=== PATIENT | female | born 1970 | race Two or more races ===

== ENCOUNTER 2024-09-17 18:33 | Emergency (ER) | payer OTHER ==
[~2024-09-17] VITALS: Ht 157.5 cm; Wt 74.7 kg
[2024-09-17] MEDS: HYDROcodone-ACET 10/325MG TAB PO ONE (19:15)
--- NOTE | 2024-09-17 19:20 | ED.PDOC ---
Musculoskeletal HPI Comments A 53 year-old female presents to the ED with a chief complaint of left forearm/wrist pain S/P fall at work today. Patient states she was at work when she tripped over a trash can, landing on the left arm/hand. Patient reports pain since. Upon triage, bruising was noted to the left palm. Patient has no further complaints at this time and otherwise denies further associated symptoms of fever, chills, dizziness, general weakness, or body aches. Patient was hypertensive on arrival. Patient denied any head trauma. Chief Complaint: Upper Extremity Time Seen by MD: 19:10 Reviewed Notes: Nurses Notes, Medications, Allergies Home Meds Active Scripts Hydrocodone-Acetaminophen (Hydrocodone Bitartrate/AC 5-325 mg) 1 Tab Tab, 1 TAB PO Q6HP PRN, #20 TAB Prov:STANISLAW AMANDA PAC 09/17/24 Ibuprofen (Ibuprofen) 600 Mg Tab, 1 TAB PO Q6HP PRN, #30 TAB Prov:STANISLAW AMANDA PAC 09/17/24 Information Source: Patient Mode of Arrival: Ambulatory Location: Left Extremity Location: Elbow, Forearm, Wrist Timing: Minutes Prehospital treatment: None Severity: Moderate Able to Move Extremity: Yes Bear Weight: Fully Pain: Moderate Hand Dominance: Right Mechanism: FOOSH Circumstances: Work Related Onset of Symptoms: After Trauma Symptoms: Swelling, Pain DVT Risk Factors: NONE Associated signs and symptoms: Wrist pain, Forearm pain, Other (Elbow pain) Past Medical History PAST MEDICAL HISTORY: Denies Surgical History: Denies all surgeries PHARMACOGENETICIST History: No Pertinent PHARMACOGENETICIST History Family History Family History: Reviewed,noncontributory to illness, No family hx of Cancer, No family hx of DM, No family hx of Heart jennifer, No family hx of HTN, No family hx ofKidney jennifer, No family hx of Liver jennifer, No family hx of Lung jennifer, No family hx of Stroke Social History Smoker: Non-Smoker Alcohol: Denies ETOH Use Drugs: Denies Drug Use Lives In: Home Constitutional: denies: chills, diaphoresis, fatigue, fever, malaise, sweats, weakness, others EENTM: denies: blurred vision, double vision, ear bleeding, ear discharge, ear drainage, ear pain, ear ringing, eye pain, eye redness, hearing loss, mouth pain, mouth swelling, nasal discharge, nose bleeding, nose congestion, nose pain, photophobia, tearing, throat pain, throat swelling, voice changes, others Respiratory: denies: cough, hemoptysis, orthopnea, SOB at rest, shortness of breath, SOB with excertion, stridor, wheezing, others Cardiovascular: denies: chest pain, dizzy spells, diaphoresis, Dyspnea on exertion, edema, irregular heart beat, left arm pain, lightheadedness, palpitations, PND, syncope, others Gastrointestinal: denies: abdomen distended, abdominal pain, blood streaked bowels, constipated, diarrhea, dysphagia, difficulty swallowing, hematemesis, melena, nausea, poor appetite, poor fluid intake, rectal bleeding, rectal pain, vomiting, others Genitourinary: denies: abnormal vagina bleeding, burning, dyspareunia, dysuria, flank pain, frequency, hematuria, incontinence, pain, , vagina discharge, urgency, others Neurological: denies: dizziness, fainting, headache, left sided numbness, left sided weakness, numbness, paresthesia, pre-existing deficit, right sided numbness, right sided weakness, seizure, speech problems, tingling, tremors, weakness, others Musculoskeletal: reports: others (Left forearm/elbow and wrist pain); denies: back pain, gout, joint pain, joint swelling, muscle pain, muscle stiffness, neck pain Integumetry: denies: bruises, change in color, change in hair/nails, dryness, laceration, lesions, lumps, rash, wounds, others Allergic/Immunocompromised: denies: Difficulty Healing, Frequent Infections, Hives, Itching, others Hematologic/Lymphatic: denies: anemia, blood clots, easy bleeding, easy bruising, swollen glands, others Endocrine: denies: excessive hunger, excessive sweating, excessive thirst, excessive urination, flushing, intolerance to cold, intolerance to heat, unexplained weight gain, unexplained weight loss, others Psychiatric: denies: anxiety, bipolar disorder, depression, hopeless, panic disorder, schizophrenia, sleepless, suicidal, others All Other Systems: Reviewed and Negative Physical Exam General Appearance: Moderate Distress ([id number] distress due to left arm pain concerns.), Normal HEENT: Normal ENT Inspection, Pharynx Normal, TMs Normal Neck: Full Range of Motion, Non-Tender, Normal, Normal Inspection Respiratory: Chest Non-Tender, Lungs Clear, No Accessory Muscle Use, No Respiratory Distress, Normal Breath Sounds Cardiovascular: No Edema, No JVD, No Murmur, No Gallop, Normal Peripheral Pulses, Regular Rate/Rhythm Breast Exam: Deferred Gastrointestinal: No Organomegaly, Non Tender, No Pulsatile Mass, Normal Bowel Sounds, Soft Genitalia: Deferred Pelvic: Deferred Rectal: Deferred Extremities: Other (Patient has diffuse tenderness to palpation throughout the left elbow down the lateral aspect of the forearm and into the wrist. Some ecchymosis noted at the palmar aspect of the left hand. Significant reduced range of motion. No crepitus appreciated.) Neurologic: Alert, No Motor Deficits, Normal Affect, Normal Mood, No Sensory Deficits Cerebellar Function: Normal Reflexes: Normal Skin: Dry, Normal Color, Warm Lymphatic: No Adenopathy Was a procedure done? Was a procedure done?: No Differential Diagnosis EXT Differential Diagnosis: Fracture, Sprain, Contusion, Strain, Arthritis X-Ray, Labs, Meds, VS Vital Signs Date Time Temp Pulse Resp B/P (MAP) Pulse Ox O2 Delivery O2 Flow Rate FiO2 09/17/24 18:42 98.1 97 18 180/97 (124 96 98.1 [place] [address] Ph: [phone] DIAGNOSTIC IMAGING Diagnostic Imaging Report : [id number] Signed PATIENT: EVELIN OCONNELL ACCT: [id number] UNIT: [id number] : 1970 LOC: ER ROOM / BED: / AGE / SEX: 53 / F ADM STATUS: REG ER SERVICE 11 ORDERING PHYSICIAN: STANISLAW AMANDA PAC PROCEDURE(s): LFOR - L FOREARM XRAY REASON: Fall/trauma ORDER NUMBER(s): [id number], ACCESSION NUMBER(s): [id number] CLINICAL INDICATION: Fall/trauma TECHNIQUE: XY L FOREARM XRAY Comparison: None FINDINGS / IMPRESSION: Mildly displaced intra-articular fracture of radial head. Elbow joint alignment is maintained. [place] [address] Ph: [phone] DIAGNOSTIC IMAGING Diagnostic Imaging Report : [id number] Signed PATIENT: EVELIN OCONNELL ACCT: [id number] UNIT: [id number] : 1970 LOC: ER ROOM / BED: / AGE / SEX: 53 / F ADM STATUS: REG ER SERVICE 11 ORDERING PHYSICIAN: STANISLAW AMANDA PAC PROCEDURE(s): LELB3 - L ELBOW 3 VIEW XRAY REASON: Fall/trauma ORDER NUMBER(s): [id number], ACCESSION NUMBER(s): [id number] CLINICAL INDICATION: Fall/trauma TECHNIQUE: XY L ELBOW 3 VIEW XRAY Comparison: None FINDINGS / IMPRESSION: Mildly displaced articular fracture of radial head. Elbow joint alignment is maintained. [place] [address] Ph: [phone] DIAGNOSTIC IMAGING Diagnostic Imaging Report : [id number] Signed PATIENT: EVELIN OCONNELL ACCT: [id number] UNIT: [id number] : 1970 LOC: ER ROOM / BED: / AGE / SEX: 53 / F ADM STATUS: REG ER SERVICE 11 ORDERING PHYSICIAN: STANISLAW AMANDA PAC PROCEDURE(s): LWRI - L WRIST 3+ VIEW XRAY REASON: Fall/trauma ORDER NUMBER(s): [id number], ACCESSION NUMBER(s): [id number] CLINICAL INDICATION: Fall/trauma TECHNIQUE: XY L WRIST 3+ VIEW XRAY Comparison: None FINDINGS: No osseous or joint abnormality identified with no fracture or dislocation. Joint spaces are normal. Soft tissues appear unremarkable. IMPRESSION: No abnormality demonstrated. X-Ray, Labs, Meds, VS Comment All studies performed the ED were reviewed by me personally. Imaging studies of the left elbow, forearm and wrist revealed a nondisplaced radial head fracture. Patient will receive a splint and sling. Pain medication as needed. Patient should follow up with primary care provider in 3-5 days for re-evaluation and probable cast placement. Additionally, patient should follow up with the primary care provider for discussions related to proper blood pressure medication management as it appears that she has a poorly controlled hyperte nsive. Time of 1ST Reevaluation: 20:46 Reevaluation 1ST: Improved Consultation: PCP Patient Education/Counseling: Diagnosis, Treatment Family Education/Counseling: Diagnosis, Treatment, No Family Present Medical Screening: No EMC Exist At This Time Sepsis Recent Procedure: No On Antibiotic Therapy: No Respiratory Rate >20: No Heart Rate >90: No Temp<36 C (96.8 F) or >38.3 C: No SBP <90 or MAP <65 mmHG: No New Acute Mental Status Change: No Is the patient on CPAP, BIPAP,: No IV fluid given: No Departure 1 Departure Time of Disposition: 20:46 Impression: Primary Impression: Nondisplaced fracture of head of left radius Additional Impression: Hypertensive urgency Disposition: 01 HOME / SELF CARE / HOMELESS Condition: Stable Additional Instructions: Advised patient utilize pain medication as needed. Patient should follow up with worker's comp or primary care provider in 3-5 days for re-evaluation and cast placement. If the patient has any problems following up with a known provider, patient should contact our facility at [phone] and asked for the orthopedic department run by Dr. Post for assistance with cast placement. e-Prescriptions Clonidine Hydrochloride (Clonidine Hcl) 0.2 Mg Tab 1 TAB PO BIDP PRN, #10 TAB 0 Refills To be used if systolic blood pressures above 160 or diastolic pressures above 90. Prov: STANISLAW AMANDA PAC 09/17/24 Hydrocodone-Acetaminophen (Hydrocodone Bitartrate/AC 5-325 mg) 1 Tab Tab 1 TAB PO Q6HP PRN, #20 TAB Prov: STANISLAW AMANDA PAC 09/17/24 Ibuprofen (Ibuprofen) 600 Mg Tab 1 TAB PO Q6HP PRN, #30 TAB Prov: STANISLAW AMANDA PAC 09/17/24 Discharged With: Self, Friend Critical Care Note Critical Care Time?: No Stability Stability form required: No Heart Score Heart Score: Heart Score Response (Comments) Value History N/A 0 EKG N/A 0 Age N/A 0 Risk Factors N/A 0 Troponin N/A 0 Total 0 I personally scribed for STANISLAW AMANDA PAC ([email or web address]) on 09/17/24 at 19:20. Electronically submitted by Veda Montague (PRESLEY). I personally scribed for TREASURE,STANISLAW B PAC ([email or web address]) on 09/17/24 at 19:22. Electronically submitted by Veda Montague (PRESLEY). I personally scribed for TREASURE,STANISLAW B PAC ([email or web address]) on 09/17/24 at 19:27. Electr onically submitted by Veda Montague (PRESLEY). I personally scribed for TREASURE,STANISLAW B PAC ([email or web address]) on 09/17/24 at 20:37. Geri ctronically submitted by Veda Montague ([place]). I personally scribed for TREASURE,STANISLAW B PAC ([email or web address]) on 09/17/24 at 20:37. Electronically submitted by Veda Montague (PRESLEY). I personally scribed for TREASURE,STANISLAW B PAC ([email or web address]) on 09/17/24 at 20:37. Electronically submitted by Veda Montague (PRESLEY). TREASURE,STANISLAW B PAC Sep 17, 2024 19:20
--- NOTE | 2024-09-17 20:19 | DVH ---
CLINICAL INDICATION: Fall/trauma TECHNIQUE: XY L WRIST 3+ VIEW XRAY Comparison: None FINDINGS: No osseous or joint abnormality identified with no fracture or dislocation. Joint spaces are normal. Soft tissues appear unremarkable. IMPRESSION: No abnormality demonstrated.
--- NOTE | 2024-09-17 20:22 | DVH ---
CLINICAL INDICATION: Fall/trauma TECHNIQUE: XY L ELBOW 3 VIEW XRAY Comparison: None FINDINGS / IMPRESSION: Mildly displaced articular fracture of radial head. Elbow joint alignment is maintained.
--- NOTE | 2024-09-17 20:28 | DVH ---
CLINICAL INDICATION: Fall/trauma TECHNIQUE: XY L FOREARM XRAY Comparison: None FINDINGS / IMPRESSION: Mildly displaced intra-articular fracture of radial head. Elbow joint alignment is maintained.
[2024-09-17] MEDS ORDERED: IBUP-1454 PO (20:49)
[2024-09-17] MEDS ORDERED: HYDR-4902 PO (20:49)
[2024-09-17] MEDS ORDERED: CLON0.2T PO (21:01)
[2024-09-17 21:43] VITALS: BP 147/87; PULSE 65; RESP 17; TEMP 98.2; O2SAT 98
== END 2024-09-17 21:47 | disposition home or self-care (01) ==
LOC: ER 18:33
DX: S52.125A Nondisplaced fracture of head of left radius, initial encounter for closed fracture (principal); I16.0 Hypertensive urgency; Z79.899 Other long term (current) drug therapy; W22.8XXA Striking against or struck by other objects, initial encounter; Y93.89 Activity, other specified; Y92.89 Other specified places as the place of occurrence of the external cause; Y99.8 Other external cause status
CPT/HCPCS: 29105; 29125; 73080; 73090; 73110

== ENCOUNTER 2024-10-24 21:51 | Inpatient (IN) | payer OTHER ==
[~2024-10-24] VITALS: Ht 157.5 cm; Wt 74.4 kg
[~2024-10-24 21:51] MED LIST: CLON0.2T PO; HYDR-4902 PO; IBUP-1454 PO
[2024-10-24 23:19] LABS: Hematocrit 42.2 % (36.0-46.0); Hemoglobin 14.2 g/dL (12.2-16.2); Mean Corpuscular Hemoglobin 30.1 pg (28.0-32.0); Mean Corpuscular Volume 89.1 fL (80.0-100.0); Nucleated Red Blood Cells % 0.1 %
[2024-10-24 23:34] LABS: INR 0.94 (0.9-1.15); Partial Thromboplastin Time 26.5 SEC (24.5-34.5); Prothrombin Time 10.0 sec (9.3-11.8)
[2024-10-24 23:35] LABS: Alanine Aminotransferase 20 U/L (7-40); Alkaline Phosphatase 99 U/L (46-116); Anion Gap 8 (5-15); BUN/Creatinine Ratio 11.3 (10.0-20.0); Calcium 9.6 mg/dL (8.7-10.4); Carbon Dioxide 27 mmol/L (20-31); Chloride 105 mmol/L (98-107); Glucose 98 mg/dL (74-106); Potassium 3.9 mmol/L (3.5-5.1); Sodium 140 mmol/L (136-145); Total Protein 7.8 g/dL (5.7-8.2)
[2024-10-24 23:36] LABS: Bilirubin, Total 0.5 mg/dL (0.2-1.0)
--- NOTE | 2024-10-24 23:40 | ECG ---
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
[2024-10-24 23:41] LABS: Albumin 4.8 g/dL (3.2-4.8); Blood Urea Nitrogen 8 mg/dL (9-23)
--- NOTE | 2024-10-25 00:31 | ED.PDOC ---
History of Present Illness HPI Comments PT CAME TO THE ER WITH CC OF CHECKING IN FOR SURGURY ON HER LEFT ELBOW TOMORROW MORNING, PT IS A&OX4 RR EVEN AND REGULAR NO DISTRESS NOTED AT THIS TIME. PT DENIES N/V/D CP SOB. PT STATES SHE IS SCHEDULED FOR LEFT ELBOW SURGERY WITH DR. ARTHUR ORTHO SURGEON AND WAS TOLD TO COME IN TONIGHT AND NOT ON FRIDAY MORNING DUE TO THE HOLIDAY. Chief Complaint: Medical Clearance Time Seen by MD: 22:04 Reviewed Notes: Nurses Notes, Medications, Allergies Allergies: Coded Allergies: NO KNOWN ALLERGIES (Unverified , 10/24/24) Home Meds Active Scripts Hydrocodone-Acetaminophen (Hydrocodone Bitartrate/AC 5-325 mg) 1 Tab Tab, 1 TAB PO Q6HP PRN, #20 TAB Prov:STANISLAW AMANDA PAC 09/18/24 Clonidine Hydrochloride (Clonidine Hcl) 0.2 Mg Tab, 1 TAB PO BIDP PRN, #10 TAB 0 Refills To be used if systolic blood pressures above 160 or diastolic pressures above 90. 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 RIP MACHINE OPERATOR History Family History Family History: Reviewed,noncontributory to illness, No family hx of Cancer, No family hx of DM, No family hx of Heart jennifer, No family hx of HTN, No family hx ofKidney jennifer, No family hx of Liver jennifer, No family hx of Lung jennifer, No family hx of Stroke Social History Smoker: Non-Smoker Alcohol: Denies ETOH Use Drugs: Denies Drug Use Lives In: Home All Other Systems: Reviewed and Negative (SEE HPI) Physical Exam General Appearance: No Apparent Distress, Normal HEENT: Normal ENT Inspection, Pharynx Normal, TMs Normal Neck: Full Range of Motion, Non-Tender Respiratory: Lungs Clear, No Respiratory Distress, Normal Breath Sounds Cardiovascular: No Edema, No JVD, No Murmur, No Gallop, Normal Peripheral Pulses, Regular Rate/Rhythm Breast Exam: Deferred Gastrointestinal: No Organomegaly, Non Tender, No Pulsatile Mass, Normal Bowel Sounds, Soft Genitalia: Deferred Pelvic: Deferred Rectal: Deferred Extremities: No calf tenderness, Normal capillary refill, Normal range of motion, No pedal edema Musculoskeletal : Location: Left Extremity Location: Elbow (IN SLING CSM INTACT) Apperance: Normal Neurologic: Alert, No Motor Deficits, Normal Affect, Normal Mood, No Sensory Deficits Cerebellar Function: Normal Reflexes: Normal Skin: Dry, Normal Color, Warm Lymphatic: No Adenopathy Was a procedure done? Was a procedure done?: No Differential Dx Considerations may include: ABNORMAL LABS X-Ray, Labs, Meds, VS Vital Signs Date Time Temp Pulse Resp B/P (MAP) Pulse Ox O2 Delivery O2 Flow Rate FiO2 10/25/24 00:25 67 17 97 Room Air 10/24/24 23:55 98.5 67 17 144/92 (109) 97 98.5 10/24/24 23:37 62 10/24/24 21:53 98.5 80 18 133/86 97 98.5 Lab Test 10/24/24 23:10 Range/Units White Blood Count 8.2 4.4-10.8 10^3/uL Red Blood Count 4.73 4.0-5.20 10^6/uL Hemoglobin 14.2 12.2-16.2 g/dL Hematocrit 42.2 36.0-46.0 % Mean Corpuscular Volume 89.1 80.0-100.0 fL Mean Corpuscular Hemoglobin 30.1 28.0-32.0 pg Mean Corpuscular Hemoglobin Concent 33.8 32.0-36.0 g/dL Red Cell Distribution Width 13.3 11.8-14.3 % Platelet Count 296 140-450 10^3/uL Mean Platelet Volume 8.8 6.9-10.8 fL Neutrophils (%) (Auto) 41.2 37.0-80.0 % Lymphocytes (%) (Auto) 50.8 H 10.0-50.0 % Monocytes (%) (Auto) 6.3 0.0-12.0 % Eosinophils (%) (Auto) 1.1 0.0-7.0 % Basophils (%) (Auto) 0.6 0.0-2.0 % Neutrophils # (Auto) 3.4 1.6-8.6 10 ^3/uL Lymphocytes # (Auto) 4.2 0.4-5.4 10 ^3/uL Monocytes # (Auto) 0.5 0-1.3 10 ^3/uL Eosinophils # (Auto) 0.1 0-0.8 10 ^3/uL Basophils # (Auto) 0 0-0.2 10 ^3/uL Nucleated Red Blood Cells 0.1 % Prothrombin Time 10.0 9.3-11.8 sec Prothrombin Time INR 0.94 0.9-1.15 Activated Partial Thromboplast Time 26.5 24.5-34.5 SEC Sodium Level 140 136-145 mmol/L Potassium Level 3.9 3.5-5.1 mmol/L Chloride Level 105 98-107 mmol/L Carbon Dioxide Level 27 20-31 mmol/L Anion Gap 8 5-15 Blood Urea Nitrogen 8 L 9-23 mg/dL Creatinine 0.71 0.550-1.02 mg/dL Glomerular Filtration Rate Calc 100 >90 mL/min BUN/Creatinine Ratio 11.3 10.0-20.0 Serum Glucose 98 74-106 mg/dL Calcium Level 9.6 8.7-10.4 mg/dL Total Bilirubin 0.5 0.2-1.0 mg/dL Aspartate Amino Transferase (AST) 17 13-40 U/L Alanine Aminotransferase (ALT) 20 7-40 U/L Alkaline Phosphatase 99 46-116 U/L Total Protein 7.8 5.7-8.2 g/dL Albumin 4.8 3.2-4.8 g/dL X-Ray, Labs, Meds, VS Comment IMAGING: CHEST X0-RAY IMPRESSION: 1. No evidence of acute disease. LABS: CBC, CMP, COAGS ALL WITHIN NORMAL LIMITS EKG SHOWS NO ECTOPY OR ST ELEVATION NORMAL SINUS. PLAN: PATIENT PLACED FOR HOSPITALIST FOR ADMISSION, FOR SURGERY LEFT RADIAL HEAD FX REPAIR WITH ORTHO SURGEON DR. STEFFANY MAURO. Time of 1ST Reevaluation: 22:30 Reevaluation 1ST: Unchanged Time of 2ND Reevaluation: 00:30 Reevaluation 2ND: Improved Patient Education/Counseling: Diagnosis, Treatment, Prognosis, Need For Follow Up Family Education/Counseling: No Family Present SEPSIS Sepsis Screen Date sepsis recognized/suspect: Oct 24, 2024 Time Sepsis recognized/suspect: 2158 Recent Procedure: No On Antibiotic Therapy: No Respiratory Rate >20: No Heart Rate >90: No Temp<36 C (96.8 F) or >38.3 C: No SBP <90 or MAP <65 mmHG: No New Acute Mental Status Change: No Is the patient on CPAP, BIPAP,: No Physician Orders Electrocardigram (10/24/24 23:59) Chest Two Views Routine (10/25/24 00:31) Urinalysis (10/25/24 00:32) Heplock Iv (10/25/24 ) Heplock Iv (10/25/24 ) Vital Signs Date Time Temp Pulse Resp B/P (MAP) Pulse Ox O2 Delivery O2 Flow Rate FiO2 10/25/24 00:25 67 17 97 Room Air 10/24/24 23:55 98.5 67 17 144/92 (109) 97 98.5 10/24/24 23:37 62 10/24/24 21:53 98.5 80 18 133/86 97 98.5 Laboratory Tests Test 10/24/24 23:10 White Blood Count 8.2 10^3/uL (4.4-10.8) Departure 1 Departure Time of Disposition: 00:31 Impression: Primary Impression: Nondisplaced fracture of head of left radius Qualified Codes: S52.125A - Nondisplaced fracture of head of left radius, i nitial encounter for closed fracture Disposition: ADMITTED INPATIENT Condition: Stable Discharged With: Self Critical Care Note Critical Care Time?: No Stability Stability form required: JAMES Lemus Oct 25, 2024 00:31
--- NOTE | 2024-10-25 00:54 | DVH ---
CHEST RADIOGRAPH Indication: SURGERY CLEARANCE Technique: Frontal and lateral view of the chest was obtained Comparison: None FINDINGS: Lines and Tubes: None Lungs: Clear Pleura: No effusion. No pneumothorax. Cardiomediastinal contours: Unremarkable Bones: Unremarkable IMPRESSION: 1. No evidence of acute disease.
[2024-10-25] MEDS ORDERED: ACETAMINOPHEN 325 MG TAB PO PRN (04:00)
[2024-10-25] MEDS ORDERED: DOCUSATE SOD 100 MG CAP PO PRN (04:00)
[2024-10-25] MEDS ORDERED: ONDANSETRON HCL 4 MG/2 ML VIAL IV PRN ×2 (04:00→12:45)
[2024-10-25 06:39] LABS: Hematocrit 41.4 % (36.0-46.0); Hemoglobin 14.3 g/dL (12.2-16.2); Mean Corpuscular Hemoglobin 30.6 pg (28.0-32.0); Mean Corpuscular Volume 88.4 fL (80.0-100.0); Nucleated Red Blood Cells % 0.2 %
[2024-10-25 06:53] LABS: INR 0.97 (0.9-1.15); Partial Thromboplastin Time 28.7 SEC (24.5-34.5); Prothrombin Time 10.3 sec (9.3-11.8)
[2024-10-25 06:55] LABS: Alanine Aminotransferase 19 U/L (7-40); Alkaline Phosphatase 98 U/L (46-116); Anion Gap 10 (5-15); BUN/Creatinine Ratio 10.8 (10.0-20.0); Calcium 9.6 mg/dL (8.7-10.4); Carbon Dioxide 27 mmol/L (20-31); Chloride 104 mmol/L (98-107); Glucose 93 mg/dL (74-106); Potassium 4.1 mmol/L (3.5-5.1); Sodium 141 mmol/L (136-145); Total Protein 7.7 g/dL (5.7-8.2)
[2024-10-25 06:56] LABS: Bilirubin, Total 0.6 mg/dL (0.2-1.0)
[2024-10-25 06:58] LABS: Albumin 4.9 g/dL (3.2-4.8); Blood Urea Nitrogen 8 mg/dL (9-23)
[2024-10-25] MEDS ORDERED: LACTATED RINGER'S 1,000 ML IV SCH (07:15)
--- NOTE | 2024-10-25 08:50 | DVHHPRES ---
History of Present Illness Resident Creating Document: STEPHANIE MCCRAY RESIDENT History of Present Illness 54-year-old female with past history of hypothyroidism presented to the hospital for admission and pre-surgical evaluation, surgery posted on Friday by Dr. Weiner. The patient states she tripped and fell down in an alley in August fracturing her forearm. Elbow x-ray showed nondisplaced radial head fracture. Review of Systems Review of Systems General: patient denies fever, fatigue, weaknes, sweating, any recent changes in appetite and weight HEENT: No headaches, visiual changes, hearing loss, tinnitus, nasal congestion and discharge, and sore throat. Cardiovascular: Denies chest pain, palpitations, dyspnea on exertion, orthopnea, or claudication. Respiratory: No cough, and wheezing. Gastrointestinal: Denies nausea, vomiting, dysphagia, odynophagia, heartburn, abdominal pain, flatulence, bloating, diarrhea, constipation, change in stool, or blood in stool. Genitourinary: No dysuria, hematuria, discharge, frequency, urgency, nocturia, incontinence, and urinary retention. Endocrine: No heat or cold intolerance, polydipsia, polyuria, and polyphagia. Neurological: No dizziness, extremity weakness and numbness, tremors, gait disturbance, seizures, and memory impairment. Psychiatric: Denies depression, anxiety,or insomnia. Musculoskeletal: Complains of pain in the left elbow Skin: No rashes, itching, skin lesion, changes in hair, nail, skin texture and breast. Hematologic/Lymphatic: Denies easy bruising, bleeding tendencies, or lymph node enlargement. Allergies: Coded Allergies: NO KNOWN ALLERGIES (Unverified , 10/24/24) Medications Current Medications Medications Dose Ordered Sig/Jose Daniel Route Start Time Stop Time Status Last Admin Dose Admin Acetaminophen 325 mg Q4HP PRN PO 10/25/24 04:00 Acetaminophen/ Hydrocodone Bitart 1 tab Q4HP PRN PO 10/25/24 04:00 Ondansetron HCl 4 mg Q4HP PRN IV 10/25/24 04:00 Docusate Sodium 100 mg BIDPRN PRN PO 10/25/24 04:00 Levothyroxine Sodium 100 mcg QAM@0600 PO 10/26/24 06:00 Lactated Ringer's 1,000 ml @ 50 mls/hr Q20H IV 10/25/24 07:15 Enoxaparin Sodium 40 mg DAILY SC 10/25/24 10:00 Exam Vital Signs Vital Signs Date Time Temp Pulse Resp B/P (MAP) Pulse Ox O2 Delivery O2 Flow Rate FiO2 10/25/24 06:31 Room Air* 0 21 10/25/24 00:25 67 17 97 10/24/24 23:55 98.5 144/92 (109) 98.5 Exam General Appearance: Alert, Oriented X3, Cooperative, No acute distress HEENT: Atraumatic, PERRLA, EOMI, Mucous membrane moist/pink Respiratory: Clear to auscultation, Normal air movement Cardiovascular: Regular rate, Normal S1, Normal S2, No murmurs, no chest wall tenderness Abdominal: Normal bowel sounds, Soft, No tenderness, No hepatospenomegaly, No masses Extremities: Left hand immobilized in a sling Skin: No rashes, No breakdown, No significant lesion Neuro: Normal gait, Normal speech, Strength at 5/5 X4 ext, Normal tone, Sensa tion intact, Cranial nerves 3-12 NL, Reflexes 2+ Psych/Mental Status: Mental status NL, Mood NL Labs/Xrays Labs Test 10/25/24 05:55 10/25/24 05:50 Range/Units White Blood Count 8.2 4.4-10.8 10^3/uL Red Blood Count 4.68 4.0-5.20 10^6/uL Hemoglobin 14.3 12.2-16.2 g/dL Hematocrit 41.4 36.0-46.0 % Mean Corpuscular Volume 88.4 80.0-100.0 fL Mean Corpuscular Hemoglobin 30.6 28.0-32.0 pg Mean Corpuscular Hemoglobin Concent 34.6 32.0-36.0 g/dL Red Cell Distribution Width 13.2 11.8-14.3 % Platelet Count 298 140-450 10^3/uL Mean Platelet Volume 9.2 6.9-10.8 fL Neutrophils (%) (Auto) 48.0 37.0-80.0 % Lymphocytes (%) (Auto) 44.4 10.0-50.0 % Monocytes (%) (Auto) 6.3 0.0-12.0 % Eosinophils (%) (Auto) 0.6 0.0-7.0 % Basophils (%) (Auto) 0.7 0.0-2.0 % Neutrophils # (Auto) 3.9 1.6-8.6 10 ^3/uL Lymphocytes # (Auto) 3.6 0.4-5.4 10 ^3/uL Monocytes # (Auto) 0.5 0-1.3 10 ^3/uL Eosinophils # (Auto) 0.1 0-0.8 10 ^3/uL Basophils # (Auto) 0.1 0-0.2 10 ^3/uL Nucleated Red Blood Cells 0.2 % Prothrombin Time 10.3 9.3-11.8 sec Prothrombin Time INR 0.97 0.9-1.15 Activated Partial Thromboplast Time 28.7 24.5-34.5 SEC Sodium Level 141 136-145 mmol/L Potassium Level 4.1 3.5-5.1 mmol/L Chloride Level 104 98-107 mmol/L Carbon Dioxide Level 27 20-31 mmol/L Anion Gap 10 5-15 Blood Urea Nitrogen 8 L 9-23 mg/dL Creatinine 0.74 0.550-1.02 mg/dL Glomerular Filtration Rate Calc 95 >90 mL/min BUN/Creatinine Ratio 10.8 10.0-20.0 Serum Glucose 93 74-106 mg/dL Calcium Level 9.6 8.7-10.4 mg/dL Total Bilirubin 0.6 0.2-1.0 mg/dL Aspartate Amino Transferase (AST) 16 13-40 U/L Alanine Aminotransferase (ALT) 19 7-40 U/L Alkaline Phosphatase 98 46-116 U/L Total Protein 7.7 5.7-8.2 g/dL Albumin 4.9 H 3.2-4.8 g/dL SEPSIS Sepsis Screen Date sepsis recognized/suspect: Oct 24, 2024 Time Sepsis recognized/suspect: 2158 Recent Procedure: No On Antibiotic Therapy: No Respiratory Rate >20: No Heart Rate >90: No Temp<36 C (96.8 F) or >38.3 C: No SBP <90 or MAP <65 mmHG: No New Acute Mental Status Change: No Is the patient on CPAP, BIPAP,: No Physician Orders Heplock Iv (10/25/24 ) Heplock Iv (10/25/24 ) Admit (10/25/24 03:56) Allergies (10/25/24 03:56) Code Status (10/25/24 03:56) Acetaminophen Tablet (Tylenol Tablet) (10/25/24 04:00) Hydrocodone-Acet 5/325mg Tab ([place]upiter 5/32 (10/25/24 04:00) Ondansetron Hcl (Zofran) (10/25/24 04:00) Docusate Sodium Capsule (Colace Capsule) (10/25/24 04:00) Npo (Nothing By Mouth) Diet (10/25/24 Breakfast) Condition: Fair (10/25/24 03:56) * Orthopedic Consult (10/25/24 04:11) Thyroid Stimulating Hormone (10/25/24 07:05) Levothyroxine Tablet (Synthroid Tablet) (10/26/24 06:00) Lactated Ringer's (10/25/24 07:15) Enoxaparin Sodium (Lovenox) (10/25/24 10:00) Drug Screen (10/25/24 07:09) Blood Alcohol (10/25/24 07:09) Vitamin D, 25-Hydroxy (10/25/24 07:09) Vital Signs Date Time Temp Pulse Resp B/P (MAP) Pulse Ox O2 Delivery O2 Flow Rate FiO2 10/25/24 06:31 Room Air* 0 21 Laboratory Tests Test 10/24/24 23:10 10/25/24 05:50 White Blood Count 8.2 10^3/uL (4.4-10.8) 8.2 10^3/uL (4.4-10.8) Assessment/Plan Assessment/Plan #Nondisplaced radial head fracture, left side-posted for surgery on Friday by Dr. Duffy #History of hypothyroidism-TSH, levothyroxine #Pre up evaluation labs-EKG, chest x-ray, CBC, CMP, PT, APTT #Orthopedics consulted Plan discussed with: Patient My Orders Orders - STEPHANIE MCCRAY RESIDENT Procedure Category Date Status Time Admit ADMIT 10/25/24 Transmitted 03:56 Allergies TONY 10/25/24 In Process 03:56 Code Status CODE 10/25/24 Transmitted 03:56 Acetaminophen Tablet PHA 10/25/24 In Process (Tylenol Tablet) 04:00 Hydrocodone-Acet PHA 10/25/24 In Process 5/325mg Tab ([place]upiter 04:00 Ondansetron Hcl PHA 10/25/24 In Process (Zofran) 04:00 Docusate Sodium PHA 10/25/24 In Process Capsule (Colace 04:00 Npo (Nothing By DIET 10/25/24 Transmitted Mouth) Diet Breakfast Condition: Fair TONY 10/25/24 In Process 03:56 * Orthopedic Consult CONS 10/25/24 Transmitted 04:11 Date of Service: Oct 25, 2024 Billing Provider: NEHA JONES MD Common Visit Codes: [id number] INP/OBS CARE (HIGH) Secondary Visit Codes: [id number] CARE PLAN 30 MINUTES STEPHANIE MCCRAY RESIDENT Oct 25, 2024 08:50
[2024-10-25] MEDS: ENOXAPARIN SOD 40 MG/0.4 ML SYRINGE SC SCH (10:00)
[2024-10-25] MEDS ORDERED: ceFAZolin 1GM/50ML 50 ML IV ONE ×2 (10:48→10:50)
[2024-10-25] MEDS ORDERED: fentaNYL CITRATE 100 MCG/2 ML VL ONE ×2 (11:54)
[2024-10-25] MEDS ORDERED: MIDAZOLAM HCL 2MG/2ML 2ml VIAL (1mg/ml) ONE (11:54)
--- NOTE | 2024-10-25 11:56 | DVHHP2 ---
History Allergies: Coded Allergies: NO KNOWN ALLERGIES (Unverified , 10/24/24) Chief Complaint: 54F, left elbow pain s/p mechanical fall on 09/17/24. 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 and therefore requested ORIF no hitting head, No LOC with fall Present Illness(Onset/Duration Left radial head fracture, 50%, displaced Past Surgical History none Medications thyroxin Physical Exam Skin intact EENT NCAT Chest and Lungs CTA B Heart RRR neg MRG Abdomen NBS ND NT Extremities Left elbow, ROM and stability not assessed due to fracture skin intact, NVI Vital Signs Vital Signs Date Time Temp Pulse Resp B/P (MAP) Pulse Ox O2 Delivery O2 Flow Rate FiO2 10/25/24 06:31 Room Air* 0 21 10/25/24 00:25 67 17 97 10/24/24 23:55 98.5 144/92 (109) 98.5 Impressions/Description Left radial head fracture, intra articular, 50 % of head surface, depressed 2-3 mm Plan Open reduction internal fixation of left radial head fracture GABE ARTHUR MD Oct 25, 2024 11:56
[2024-10-25] MEDS ORDERED: BUPIVACAINE 0.5% P/F INJ 10 ML VIAL ONE (12:21)
[2024-10-25] MEDS ORDERED: HYDROmorphone HCL 2 MG/ML VL/or syr IV PRN ×2 (12:45)
[2024-10-25 13:04] VITALS: PULSE 100; RESP 12
--- NOTE | 2024-10-25 13:23 | DVHOP2 ---
Operative Report - 2 Report Details Date: 10/25/24 Preop Diagnosis: Left radial head fracture, displaced, 50 % of radial head Postop Diagnosis: same Surgeon: Gabe Arthur MD Product Communications Manager: none Anesthesiologist: Dr Jimenez Anesthesia: General Drains: none Implant: two gamaliel screws Consent: The patient was informed of the risks and benefits of the procedure. These include but are not limited to complications of anesthesia, postoperative infection, incomplete relief of symptoms, recurrence of symptoms, damage to blo od vessels, nerves and tendons, deep venous thrombosis, pulmonary embolism and possible need for repeat surgery in the future. 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 Name of Procedure Performed ORIF left elbow radial head fracture Procedure Details Procedure Details: Patient brought in the operating room given general anesthesia supine position without complication nonsterile tourniquet on left proximal arm left arm placed on armboard radiolucent sterile prep and drape left upper extremity time-out performed confirmation of site correct site open reduction internal fixation left radial head fracture correct procedure after review of the operative consent history and physical my initials and left arm exsanguination with the Esmarch tourniquet elevated to 250 mm mm of mercury total tourniquet time of 30 minutes longitudinal incision made over lateral aspect of radial capitate joint sharp dissection through skin down the subcutaneous tissue blunt dissection the deep fascia the fascia divided blunt dissection down to capsule capsule and divided including annular ligament exposing radial head and neck there seemed to be a 50% articular surface depression fracture lateral aspect or anterior lateral aspect which was then pushed back into place using osteotome and then held in place using guidewires for Gamaliel screws into her screws placed 118 mm 120 mm the far end of the hardware screws could be directly visualized by rotating the radius to see the of the screws were not protruding beyond the articular cartilage surface and similarly on the fracture site of the screws were seen to not be proud and there was no clicking or rubbing pronation and supination passively irrigation was then performed excellent hemostasis noted after tourniquet let down closure of annular ligament repair of annular ligament and deep fat the deep capsule with simple interrupted 0 Vicryl suture then repair of fascia over common extensors with 0 Vicryl suture simple inverted interrupted and then subcutaneous 2-0 Vicryl and silvia for skin fluffs ABD long-arm posterior splint in neutral pronation supination follow up in orthopedic office two weeks Specimen: none Condition Stable Disposition Still a Patient GABE ARTHUR MD Oct 25, 2024 13:23
--- NOTE | 2024-10-25 13:24 | DVHPNRES ---
Progress Note Date Seen: Oct 25, 2024 Resident Creating Document: MICHAEL HOOVER RESIDENT Medical Necessity Reason Pt with a Central, PICC or Fol: No Subjective Review of Systems This is a 54-year-old female who came to the hospital for an elective planned surgery on her left elbow this morning. The patient tripped and fell on her elbow on September 17, 2024 had a fracture of the left radial head with 50% displacement of the radial head which was splinted and asked to follow outpatient. On her last visit to orthopedics, was given the option of observation versus ORIF. 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 She has mild pain in her left elbow. The patient is stable clinically with stable vitals and was labs within range, other than the TSH which is 0.42. She is here for medical clearance for her surgery scheduled for today. Past medical history: Hypothyroidism Past surgical history: Denies Social & Personal history: Lives at home with family Smoking: Denies Alcohol: Denies Drugs: Denies Allergies: No known allergies Patient seen and examined at bedside. Patient is alert and oriented to time, place person and responding to all questions. She has pain in her left elbow. Eyes: No Pain, No Vision change, No Conjunctivae inflammation, No Eyelid inflammation, No Redness ENT: No Ear pain, No Ear discharge, No Nose pain, No Nose discharge, No Nose congestion, No Mouth pain, No Mouth swelling, No Throat pain, No Throat swelling Cardiovascular: No Chest Pain, No Palpitations, No Orthopnea, No Paroxysmal No Dyspnea, No Edema, No Lt Headedness Respiratory: No Cough, No Dry, No Shortness of breath, No SOB with exertion, No Wheezing, No Hemoptysis, No Pleuritic Pain, No Sputum Gastrointestinal: No Nausea, No Vomiting, No Abdominal Pain, No Diarrhea, No Constipation, No Melena, No Hematochezia Genitourinary: No Dysuria, No Frequency, No Incontinence, No Hematuria, No Retention Patient reports: Feels better Objective vital signs Vital Sign Date Time Temp Pulse Resp B/P (MAP) Pulse Ox O2 Delivery O2 Flow Rate FiO2 10/25/24 06:31 Room Air* 0 21 10/25/24 00:25 67 17 97 10/24/24 23:55 98.5 144/92 (109) 98.5 medications Current Medications Medications Dose Ordered Sig/Jose Daniel Route Start Time Stop Time Status Last Admin Dose Admin Acetaminophen 325 mg Q4HP PRN PO 10/25/24 04:00 Acetaminophen/ Hydrocodone Bitart 1 tab Q4HP PRN PO 10/25/24 04:00 Ondansetron HCl 4 mg Q4HP PRN IV 10/25/24 04:00 Docusate Sodium 100 mg BIDPRN PRN PO 10/25/24 04:00 Levothyroxine Sodium 100 mcg QAM@0600 PO 10/26/24 06:00 Lactated Ringer's 1,000 ml @ 50 mls/hr Q20H IV 10/25/24 07:15 Enoxaparin Sodium 40 mg DAILY SC 10/25/24 10:00 Ondansetron HCl 4 mg ONCE PRN IV 10/25/24 12:45 10/25/24 12:46 UNV Hydromorphone HCl 0.5 mg Q10M PRN IV 10/25/24 12:45 10/25/24 13:26 UNV Hydromorphone HCl 0.25 mg Q10M PRN IV 10/25/24 12:45 10/25/24 13:16 UNV Examination General Appearance: Cooperative. Well developed. Well nourished. NAD. There is tenderness around the left elbow joint with decreased range of motion. Head Exam: Normal inspection Neck Exam: Normal inspection. Non-tender. Normal alignment Pulmonary/Respiratory: Chest non-tender. Clear bilateral breath sounds, no crackles, no wheezing. Cardiovascular/Chest: Regular rate and rhythm. No murmurs. No JVD. Peripheral Pulses: 2+ Radial (R). 2+ Radial (L). 2+ Pedal (R). 2+ Pedal (L) Abdominal Exam: Normal bowel sounds. Soft. normal abdomen, no visible veins, Nontender. No hepatospenomegaly. No masses Ankle Exam: Negative ankle edema Lower extremities: Negative lower extremity edema Neuro/Mental Status: A&O x4. Coherent. Thoughts/Psych: Normal thought pattern. Appropriate mood and affect. Good judgement and insight Skin Exam: Normal inspection. Normal color. Warm. Dry laboratory and microbiology Laboratory Tests 10/25/24 05:50 Test 10/25/24 05:50 Range/Units Serum Glucose 93 74-106 mg/dL Labs and/or images reviewed: Labs reviewed by me, Image(s) reviewed by me Problem List/Assessment/Plan Problem List/Assessment/Plan Encounter for elective surgery Displaced fracture of the left radial head status post mechanical fall -elbow x-ray showed nondisplaced radial head fracture with moderate joint effusion -wrist x-ray no abnormalities -left forearm x-ray mildly displaced intra-articular fracture of radial head -orthopedic surgeon evaluated the patient-ORIF done on 10/25/2024 -symptomatic management with pain Hypothyroidism -on levothyroxine 100 mcg Vitamin-D deficiency -Repleting -outpatient monitoring PUD prophylaxis: Protonix DVT prophylaxis: Lovenox Goals of care: Full code, discussed for >16 minutes Plan discussed with patient Plan discussed with Dr Park Plan discussed with: Patient Date of Service: Oct 25, 2024 Billing Provider: TIO RICKETTS MD Common Visit Codes: [id number] INP/OBS CARE(HIGH) MICHAEL HOOVER RESIDENT Oct 25, 2024 13:24 TIO RICKETTS MD Oct 31, 2024 23:40
[2024-10-25] MEDS ORDERED: NITROGLYCERIN 0.4 MG SL TAB SL PRN (13:30)
[2024-10-25 14:00] VITALS: BP 156/78; PULSE 67; RESP 18; TEMP 97.8; O2SAT 96
[2024-10-25 14:44] VITALS: BP 156/78; PULSE 67; RESP 18; TEMP 97.8; O2SAT 96
[2024-10-25] MEDS: ERGOCALCIFEROL 50,000 UNIT(1.25MG) CAP PO SCH (14:54)
[2024-10-25] MEDS: ceFAZolin 1GM/50ML 50 ML IV SCH (14:55)
[2024-10-25] MEDS: D5W/SOD CHL 0.45%/KCL 20MEQ 1,000 ML IV SCH (14:58)
[2024-10-25] MEDS: HYDROcodone-ACET 5/325MG TAB PO PRN (15:15)
--- NOTE | 2024-10-25 16:00 | DVH ---
Indication: LT ELBOW Technique: XY L ELBOW 2 VIEW XRAYXY Comparison: None FINDINGS/IMPRESSION: Intraoperative radiographs of the left elbow for fixation pin placement within the radial head fractu re.
--- NOTE | 2024-10-25 16:01 | DVH ---
C-ARM FLUOROSCOPY: PROCEDURE: C-arm time for surgery on left elbow FLUOROSCOPY TIME: 12.5 seconds DAP: 0.39 mGy mgy FINDINGS: Spot intraoperative C arm radiographs demonstrating surgery on left elbow. IMPRESSION: 1. Please refer to surgical report for detailed findings.
[2024-10-25 17:00] VITALS: BP 144/85; PULSE 83; RESP 16; TEMP 97.9; O2SAT 98
[2024-10-25 20:00] VITALS: PULSE 87; RESP 19; O2SAT 96
[2024-10-25 20:53] VITALS: BP 120/74; PULSE 87; RESP 19; TEMP 98.5; O2SAT 96
[2024-10-26] VITALS (8 sets, daily range): BP systolic 118–146; BP diastolic 64–96; PULSE 72–102; RESP 18–20; TEMP 97.9–98.7; O2SAT 93–99
[2024-10-26] MEDS: LEVOTHYROXINE SODIUM 100 MCG TAB PO SCH (07:02)
[2024-10-26 07:31] LABS: Hematocrit 37.6 % (36.0-46.0); Hemoglobin 12.6 g/dL (12.2-16.2); Mean Corpuscular Hemoglobin 30.3 pg (28.0-32.0); Mean Corpuscular Volume 90.4 fL (80.0-100.0); Nucleated Red Blood Cells % 0.2 %
[2024-10-26 07:55] LABS: Potassium 4.6 mmol/L (3.5-5.1); Sodium 142 mmol/L (136-145)
[2024-10-26 07:56] LABS: Anion Gap 9 (5-15); Carbon Dioxide 24 mmol/L (20-31)
[2024-10-26 08:01] LABS: BUN/Creatinine Ratio 12.7 (10.0-20.0)
[2024-10-26 08:04] LABS: Blood Urea Nitrogen 8 mg/dL (9-23); Calcium 8.5 mg/dL (8.7-10.4); Chloride 109 mmol/L (98-107); Glucose 160 mg/dL (74-106)
[2024-10-26 08:48] LABS: Free T4 (Free Thyroxine) 1.75 ng/dL (0.89-1.76)
[2024-10-26] MEDS ORDERED: HYDROcodone-ACET 7.5/325MG TAB PO PRN (09:30)
[2024-10-26] MEDS: MORPHINE SULFATE INJ 2 MG/ml SYRG IV PRN (17:58)
--- NOTE | 2024-10-26 18:04 | DVHPNRES ---
Progress Note Date Seen: Oct 26, 2024 Resident Creating Document: MICHAEL HOOVER RESIDENT Medical Necessity Reason Pt with a Central, PICC or Fol: No Subjective Review of Systems This is a 54-year-old female who came to the hospital for an elective planned surgery on her left elbow this morning. The patient tripped and fell on her elbow on September 17, 2024 had a fracture of the left radial head with 50% displacement of the radial head which was splinted and asked to follow outpatient. On her last visit to orthopedics, was given the option of observation versus ORIF. 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 She has mild pain in her left elbow. The patient is stable clinically with stable vitals and was labs within range, other than the TSH which is 0.42. She is here for medical clearance for her surgery scheduled for today. Past medical history: Hypothyroidism Past surgical history: Denies Social & Personal history: Lives at home with family Smoking: Denies Alcohol: Denies Drugs: Denies Allergies: No known allergies Patient seen and examined at bedside. Patient is alert and oriented to time, place person and responding to all questions. She has pain in her left elbow. Eyes: No Pain, No Vision change, No Conjunctivae inflammation, No Eyelid inflammation, No Redness ENT: No Ear pain, No Ear discharge, No Nose pain, No Nose discharge, No Nose congestion, No Mouth pain, No Mouth swelling, No Throat pain, No Throat swelling Cardiovascular: No Chest Pain, No Palpitations, No Orthopnea, No Paroxysmal No Dyspnea, No Edema, No Lt Headedness Respiratory: No Cough, No Dry, No Shortness of breath, No SOB with exertion, No Wheezing, No Hemoptysis, No Pleuritic Pain, No Sputum Gastrointestinal: No Nausea, No Vomiting, No Abdominal Pain, No Diarrhea, No Constipation, No Melena, No Hematochezia Genitourinary: No Dysuria, No Frequency, No Incontinence, No Hematuria, No Retention 9/2-the patient was seen at bedside today. She stated that her pain was a 10/10 on intensity. Morphine was added to her pain regimen in addition to the [place] and the dose of the [place] was increased. Per orthopedics the patient is okay to discharge after pain control. Was explained about a likely discharge tomorrow. Objective vital signs Vital Sign Date Time Temp Pulse Resp B/P (MAP) Pulse Ox O2 Delivery O2 Flow Rate FiO2 10/26/24 17:58 76 18 133/79 10/26/24 16:37 98.3 97 98.3 10/26/24 08:05 Room Air* 0 21 Total Intake and Output 10/25/24 10/25/24 10/26/24 15:00 23:00 07:00 Intake Total 450 ml 400 ml Balance 450 ml 400 ml medications Current Medications Medications Dose Ordered Sig/Jose Daniel Route Start Time Stop Time Status Last Admin Dose Admin Acetaminophen 325 mg Q4HP PRN PO 10/25/24 04:00 Ondansetron HCl 4 mg Q4HP PRN IV 10/25/24 04:00 Docusate Sodium 100 mg BIDPRN PRN PO 10/25/24 04:00 Levothyroxine Sodium 100 mcg QAM@0600 PO 10/26/24 06:00 10/26/24 07:02 100 MCG Enoxaparin Sodium 40 mg DAILY SC 10/25/24 10:00 10/26/24 09:00 40 MG Potassium Chloride/Dextrose/ Sod Cl 1,000 ml @ 150 mls/hr Q6H40M IV 10/25/24 13:30 10/26/24 17:58 150 MLS/HR Nitroglycerin 0.4 mg Q5MINP PRN SL 10/25/24 13:30 Ergocalciferol 50,000 unit Q7D PO 10/25/24 14:00 10/25/24 14:54 50,000 UNIT Morphine Sulfate 1 mg Q4HP PRN IV 10/26/24 09:30 10/26/24 17:58 1 MG Acetaminophen/ Hydrocodone Bitart 1 tab Q4HP PRN PO 10/26/24 18:00 UNV Examination General Appearance: Cooperative. Well developed. Well nourished. NAD. There is tenderness around the left elbow joint with decreased range of motion, the left arm is currently in mobile and has dressing on. Head Exam: Normal inspection Neck Exam: Normal inspection. Non-tender. Normal alignment Pulmonary/Respiratory: Chest non-tender. Clear bilateral breath sounds, no crackles, no wheezing. Cardiovascular/Chest: Regular rate and rhythm. No murmurs. No JVD. Peripheral Pulses: 2+ Radial (R). 2+ Radial (L). 2+ Pedal (R). 2+ Pedal (L) Abdominal Exam: Normal bowel sounds. Soft. normal abdomen, no visible veins, Nontender. No hepatospenomegaly. No masses Ankle Exam: Negative ankle edema Lower extremities: Negative lower extremity edema Neuro/Mental Status: A&O x4. Coherent. Thoughts/Psych: Normal thought pattern. Appropriate mood and affect. Good judgement and insight Skin Exam: Normal inspection. Normal color. Warm. Dry laboratory and microbiology Laboratory Tests 10/26/24 06:30 Test 10/26/24 06:30 Range/Units Serum Glucose 160 H 74-106 mg/dL Labs and/or images reviewed: Labs reviewed by me, Image(s) reviewed by me Problem List/Assessment/Plan Problem List/Assessment/Plan Encounter for elective surgery Displaced fracture of the left radial head status post mechanical fall -elbow x-ray showed nondisplaced radial head fracture with moderate joint effusion -wrist x-ray no abnormalities -left forearm x-ray mildly displaced intra-articular fracture of radial head -orthopedic surgeon evaluated the patient-ORIF done on 10/25/2024 -symptomatic management with pain with [place] and morphine Hypothyroidism -on levothyroxine 100 mcg Vitamin-D deficiency -Repleting -outpatient monitoring PUD prophylaxis: Protonix DVT prophylaxis: Lovenox Goals of care: Full code, discussed for >16 minutes Plan discussed with patient Plan discussed with Dr Park Plan discussed with: Patient My Orders My Orders Orders - MICHAEL HOOVER RESIDENT Procedure Category Date Status Time Morphine Sulfate PHA 10/26/24 In Process Injection 09:30 Hydrocodone-Acet PHA 10/26/24 Logged 10/325mg Tab ([place] 18:00 Date of Service: Oct 26, 2024 Billing Provider: TIO RICKETTS MD Common Visit Codes: [id number] INP/OBS CARE(HIGH) MIHCAEL HOOVER RESIDENT Oct 26, 2024 18:04 TUTU BACK RESIDENT Oct 26, 2024 19:59 TIO RICKETTS MD Nov 01, 2024 00:09
[2024-10-27] VITALS (9 sets, daily range): BP systolic 128–149; BP diastolic 79–92; PULSE 65–89; RESP 17–19; TEMP 97.9–98.3; O2SAT 94–100
[2024-10-27] MEDS: HYDROcodone-ACET 10/325MG TAB PO PRN (04:18)
[2024-10-27 07:29] LABS: Potassium 4.7 mmol/L (3.5-5.1); Sodium 141 mmol/L (136-145)
[2024-10-27 07:30] LABS: Anion Gap 9 (5-15); Carbon Dioxide 24 mmol/L (20-31); Hematocrit 37.6 % (36.0-46.0); Hemoglobin 12.8 g/dL (12.2-16.2); Mean Corpuscular Hemoglobin 30.1 pg (28.0-32.0); Mean Corpuscular Volume 88.4 fL (80.0-100.0); Nucleated Red Blood Cells % 0.0 %
[2024-10-27 07:35] LABS: BUN/Creatinine Ratio 12.9 (10.0-20.0)
[2024-10-27 07:50] LABS: Blood Urea Nitrogen 8 mg/dL (9-23); Calcium 8.6 mg/dL (8.7-10.4); Chloride 108 mmol/L (98-107); Glucose 154 mg/dL (74-106)
--- NOTE | 2024-10-27 15:40 | DVHPNRES ---
Progress Note Date Seen: Oct 27, 2024 Resident Creating Document: MICHAEL HOOVER RESIDENT Medical Necessity Reason Pt with a Central, PICC or Fol: No Subjective Review of Systems This is a 54-year-old female who came to the hospital for an elective planned surgery on her left elbow this morning. The patient tripped and fell on her elbow on September 17, 2024 had a fracture of the left radial head with 50% displacement of the radial head which was splinted and asked to follow outpatient. On her last visit to orthopedics, was given the option of observation versus ORIF. 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 She has mild pain in her left elbow. The patient is stable clinically with stable vitals and was labs within range, other than the TSH which is 0.42. She is here for medical clearance for her surgery scheduled for today. Past medical history: Hypothyroidism Past surgical history: Denies Social & Personal history: Lives at home with family Smoking: Denies Alcohol: Denies Drugs: Denies Allergies: No known allergies Patient seen and examined at bedside. Patient is alert and oriented to time, place person and responding to all questions. She has pain in her left elbow. Eyes: No Pain, No Vision change, No Conjunctivae inflammation, No Eyelid inflammation, No Redness ENT: No Ear pain, No Ear discharge, No Nose pain, No Nose discharge, No Nose congestion, No Mouth pain, No Mouth swelling, No Throat pain, No Throat swelling Cardiovascular: No Chest Pain, No Palpitations, No Orthopnea, No Paroxysmal No Dyspnea, No Edema, No Lt Headedness Respiratory: No Cough, No Dry, No Shortness of breath, No SOB with exertion, No Wheezing, No Hemoptysis, No Pleuritic Pain, No Sputum Gastrointestinal: No Nausea, No Vomiting, No Abdominal Pain, No Diarrhea, No Constipation, No Melena, No Hematochezia Genitourinary: No Dysuria, No Frequency, No Incontinence, No Hematuria, No Retention 10/26-the patient was seen at bedside today. She stated that her pain was a 10/10 on intensity. Morphine was added to her pain regimen in addition to the [place] and the dose of the [place] was increased. Per orthopedics the patient is okay to discharge after pain control. Was explained about a likely discharge tomorrow. 10/27-patient was seen at bedside today. She still complains of pain in her left elbow. The patient mentioned she is not willing to be discharged as she needs the IV pain medication to control the pain. We explained again the possibility of sending her home tomorrow if we are able to control pain on oral medications. Objective vital signs Vital Sign Date Time Temp Pulse Resp B/P (MAP) Pulse Ox O2 Delivery O2 Flow Rate FiO2 10/27/24 13:00 98.0 74 17 142/85 (104) 95 98.0 10/27/24 08:00 Room Air* 0 21 Total Intake and Output 10/26/24 10/26/24 10/27/24 15:00 23:00 07:00 Intake Total 594 ml 2494 ml 1480 ml Output Total 0 ml Balance 594 ml 2494 ml 1480 ml medications Current Medications Medications Dose Ordered Sig/Jose Daniel Route Start Time Stop Time Status Last Admin Dose Admin Acetaminophen 325 mg Q4HP PRN PO 10/25/24 04:00 Ondansetron HCl 4 mg Q4HP PRN IV 10/25/24 04:00 Docusate Sodium 100 mg BIDPRN PRN PO 10/25/24 04:00 Levothyroxine Sodium 100 mcg QAM@0600 PO 10/26/24 06:00 10/27/24 05:20 100 MCG Enoxaparin Sodium 40 mg DAILY SC 10/25/24 10:00 10/27/24 09:30 40 MG Potassium Chloride/Dextrose/ Sod Cl 1,000 ml @ 150 mls/hr Q6H40M IV 10/25/24 13:30 10/27/24 12:26 150 MLS/HR Nitroglycerin 0.4 mg Q5MINP PRN SL 10/25/24 13:30 Ergocalciferol 50,000 unit Q7D PO 10/25/24 14:00 10/25/24 14:54 50,000 UNIT Morphine Sulfate 1 mg Q4HP PRN IV 10/26/24 09:30 10/26/24 21:56 1 MG Acetaminophen/ Hydrocodone Bitart 1 tab Q4HP PRN PO 10/26/24 18:00 10/27/24 09:31 1 TAB Examination General Appearance: Cooperative. Well developed. Well nourished. NAD. There is tenderness around the left elbow joint with decreased range of motion, the left arm is currently in mobile and has dressing on. Head Exam: Normal inspection Neck Exam: Normal inspection. Non-tender. Normal alignment Pulmonary/Respiratory: Chest non-tender. Clear bilateral breath sounds, no crackles, no wheezing. Cardiovascular/Chest: Regular rate and rhythm. No murmurs. No JVD. Peripheral Pulses: 2+ Radial (R). 2+ Radial (L). 2+ Pedal (R). 2+ Pedal (L) Abdominal Exam: Normal bowel sounds. Soft. normal abdomen, no visible veins, Nontender. No hepatospenomegaly. No masses Ankle Exam: Negative ankle edema Lower extremities: Negative lower extremity edema Neuro/Mental Status: A&O x4. Coherent. Thoughts/Psych: Normal thought pattern. Appropriate mood and affect. Good judgement and insight Skin Exam: Normal inspection. Normal color. Warm. Dry laboratory and microbiology Laboratory Tests 10/27/24 06:27 Test 10/27/24 06:27 Range/Units Serum Glucose 154 H 74-106 mg/dL Labs and/or images reviewed: Labs reviewed by me, Image(s) reviewed by me Problem List/Assessment/Plan Problem List/Assessment/Plan Encounter for elective surgery Displaced fracture of the left radial head status post mechanical fall -elbow x-ray showed nondisplaced radial head fracture with moderate joint effusion -wrist x-ray no abnormalities -left forearm x-ray mildly displaced intra-articular fracture of radial head -orthopedic surgeon evaluated the patient-ORIF done on 10/25/2024 -symptomatic management with pain with [place] and morphine Hypothyroidism -on levothyroxine 100 mcg Vitamin-D deficiency -Repleting -outpatient monitoring PUD prophylaxis: Protonix DVT prophylaxis: Lovenox Goals of care: Full code, discussed for >16 minutes Plan discussed with patient Plan discussed with Dr Park Plan discussed with: Patient My Orders My Orders Orders - MICHAEL HOOVER Procedure Category Date Status Time Hydrocodone-Acet PHA 10/26/24 In Process 10/325mg Tab ([place] 18:00 Date of Service: Oct 27, 2024 Billing Provider: TIO RICKETTS MD Common Visit Codes: [id number] INP/OBS CARE(HIGH) MICHAEL HOOVER RESIDENT Oct 27, 2024 15:39 TIO RICKETTS MD Nov 01, 2024 00:47
[2024-10-28 01:04] VITALS: BP 114/69; PULSE 69; RESP 17; TEMP 97.4; O2SAT 97
[2024-10-28 05:00] VITALS: BP 129/94; PULSE 81; RESP 17; TEMP 97.9; O2SAT 97
[2024-10-28 05:34] LABS: Hematocrit 39.1 % (36.0-46.0); Hemoglobin 13.4 g/dL (12.2-16.2); Mean Corpuscular Hemoglobin 30.2 pg (28.0-32.0); Mean Corpuscular Volume 87.8 fL (80.0-100.0); Nucleated Red Blood Cells % 0.2 %
[2024-10-28 05:54] LABS: Anion Gap 11 (5-15); Carbon Dioxide 26 mmol/L (20-31); Chloride 103 mmol/L (98-107); Potassium 3.8 mmol/L (3.5-5.1); Sodium 140 mmol/L (136-145)
[2024-10-28 05:55] LABS: Calcium 9.2 mg/dL (8.7-10.4)
[2024-10-28 06:00] LABS: BUN/Creatinine Ratio 14.1 (10.0-20.0); Glucose 92 mg/dL (74-106)
[2024-10-28 06:03] LABS: Blood Urea Nitrogen 9 mg/dL (9-23)
[2024-10-28 08:00] VITALS: PULSE 66; RESP 16; O2SAT 95
[2024-10-28 08:39] VITALS: BP 147/77; PULSE 66; RESP 16; TEMP 97; O2SAT 95
[2024-10-28 12:12] VITALS: BP 147/77; PULSE 66; RESP 16; TEMP 97; O2SAT 95
--- NOTE | 2024-10-28 12:38 | DVHDSRES ---
Discharge Summary Date of Admission Resident Creating Document: MICHAEL HOOVER RESIDENT Oct 25, 2024 at 13:23 Date of Discharge: Oct 28, 2024 Admitting Diagnosis Nondisplaced fracture of head of left radius Labs/Diagnostic Data: Laboratory Results Test 10/28/24 04:48 10/26/24 06:30 10/25/24 05:55 10/25/24 05:50 White Blood Count 6.8 10^3/uL (4.4-10.8) Red Blood Count 4.46 10^6/uL (4.0-5.20) Hemoglobin 13.4 g/dL (12.2-16.2) Hematocrit 39.1 % (36.0-46.0) Mean Corpuscular Volume 87.8 fL (80.0-100.0) Mean Corpuscular Hemoglobin 30.2 pg (28.0-32.0) Mean Corpuscular Hemoglobin Concent 34.4 g/dL (32.0-36.0) Red Cell Distribution Width 13.1 % (11.8-14.3) Platelet Count 270 10^3/uL (140-450) Mean Platelet Volume 9.4 fL (6.9-10.8) Neutrophils (%) (Auto) 41.0 % (37.0-80.0) Lymphocytes (%) (Auto) 48.1 % (10.0-50.0) Monocytes (%) (Auto) 8.1 % (0.0-12.0) Eosinophils (%) (Auto) 2.4 % (0.0-7.0) Basophils (%) (Auto) 0.4 % (0.0-2.0) Neutrophils # (Auto) 2.8 10 ^3/uL (1.6-8.6) Lymphocytes # (Auto) 3.3 10 ^3/uL (0.4-5.4) Monocytes # (Auto) 0.5 10 ^3/uL (0-1.3) Eosinophils # (Auto) 0.2 10 ^3/uL (0-0.8) Basophils # (Auto) 0 10 ^3/uL (0-0.2) Nucleated Red Blood Cells 0.2 % Sodium Level 140 mmol/L (136-145) Potassium Level 3.8 mmol/L (3.5-5.1) Chloride Level 103 mmol/L (98-107) Carbon Dioxide Level 26 mmol/L (20-31) Anion Gap 11 (5-15) Blood Urea Nitrogen 9 mg/dL (9-23) Creatinine 0.64 mg/dL (0.550-1.02) Glomerular Filtration Rate Calc 104 mL/min (>90) BUN/Creatinine Ratio 14.1 (10.0-20.0) Serum Glucose 92 mg/dL (74-106) Calcium Level 9.2 mg/dL (8.7-10.4) Free Thyroxine (T4) Calculated 1.75 ng/dL (0.89-1.76) Total Triiodothyronine (TT3) 1.14 ng/mL (0.60-1.81) Vitamin D 25-Hydroxy 17.5 ng/mL (30.0-100) Prothrombin Time 10.3 sec (9.3-11.8) Prothrombin Time INR 0.97 (0.9-1.15) Activated Partial Thromboplast Time 28.7 SEC (24.5-34.5) Total Bilirubin 0.6 mg/dL (0.2-1.0) Aspartate Amino Transferase (AST) 16 U/L (13-40) Alanine Aminotransferase (ALT) 19 U/L (7-40) Alkaline Phosphatase 98 U/L (46-116) Total Protein 7.7 g/dL (5.7-8.2) Albumin 4.9 g/dL (3.2-4.8) Thyroid Stimulating Hormone (TSH) 0.42 uIU/mL (0.55-4.78) Plasma/Serum Blood Alcohol < 3.0 mg/dL (<10) Other Laboratory Tests 10/28/24 04:48 Brief Hx & Hospital Course: This is a 54-year-old female who came to the hospital for an elective planned surgery on her left elbow this morning. The patient tripped and fell on her elbow on September 17, 2024 had a fracture of the left radial head with 50% displacement of the radial head which was splinted and asked to follow outpatient. On her last visit to orthopedics, was given the option of observation versus ORIF. 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 She had mild pain in her left elbow. The patient was stable clinically with stable vitals and was labs within range, other than the TSH which is 0.42. He was continued on her home levothyroxine dose. The patient underwent orthopedic surgery on 10/25/2024, her pain gradually reduced over the next few days she was discharged home on oral pain medication. All medications and recommendations were thoroughly explained to the patient. Questions were answered and all concerns were addressed. Past medical history: Hypothyroidism Past surgical history: Denies Social & Personal history: Lives at home with family Smoking: Denies Alcohol: Denies Drugs: Denies Allergies: No known allergies Patient seen and examined at bedside. Patient is alert and oriented to time, place person and responding to all questions. She has pain in her left elbow. Eyes: No Pain, No Vision change, No Conjunctivae inflammation, No Eyelid inflammation, No Redness ENT: No Ear pain, No Ear discharge, No Nose pain, No Nose discharge, No Nose congestion, No Mouth pain, No Mouth swelling, No Throat pain, No Throat swelling Cardiovascular: No Chest Pain, No Palpitations, No Orthopnea, No Paroxysmal No Dyspnea, No Edema, No Lt Headedness Respiratory: No Cough, No Dry, No Shortness of breath, No SOB with exertion, No Wheezing, No Hemoptysis, No Pleuritic Pain, No Sputum Gastrointestinal: No Nausea, No Vomiting, No Abdominal Pain, No Diarrhea, No Constipation, No Melena, No Hematochezia Genitourinary: No Dysuria, No Frequency, No Incontinence, No Hematuria, No Retention General Appearance: Cooperative. Well developed. Well nourished. NAD. There is tenderness around the left elbow joint with decreased range of motion, the left arm is currently in mobile and has dressing on. Head Exam: Normal inspection Neck Exam: Normal inspection. Non-tender. Normal alignment Pulmonary/Respiratory: Chest non-tender. Clear bilateral breath sounds, no crackles, no wheezing. Cardiovascular/Chest: Regular rate and rhythm. No murmurs. No JVD. Peripheral Pulses: 2+ Radial (R). 2+ Radial (L). 2+ Pedal (R). 2+ Pedal (L) Abdominal Exam: Normal bowel sounds. Soft. normal abdomen, no visible veins, Nontender. No hepatospenomegaly. No masses Ankle Exam: Negative ankle edema Lower extremities: Negative lower extremity edema Neuro/Mental Status: A&O x4. Coherent. Thoughts/Psych: Normal thought pattern. Appropriate mood and affect. Good judgement and insight Skin Exam: Normal inspection. Normal color. Warm. Dry Operations or Procedures 1.PROCEDURE(s): CXR2 - CHEST TWO VIEWS ROUTINE REASON: SURGERY CLEARANCE ORDER NUMBER(s): [id number], ACCESSION NUMBER(s): [id number] CHEST RADIOGRAPH Indication: SURGERY CLEARANCE Technique: Frontal and lateral view of the chest was obtained Comparison: None FINDINGS: Lines and Tubes: None Lungs: Clear Pleura: No effusion. No pneumothorax. Cardiomediastinal contours: Unremarkable Bones: Unremarkable IMPRESSION: 1. No evidence of acute disease. 2.PROCEDURE(s): LELB - L ELBOW 2 VIEW XRAY REASON: LT ELBOW ORDER NUMBER(s): [id number], ACCESSION NUMBER(s): [id number] Indication: LT ELBOW Technique: XY L ELBOW 2 VIEW XRAYXY Comparison: None FINDINGS/IMPRESSION: Intraoperative radiographs of the left elbow for fixation pin placement within the radial head fracture. 3.PROCEDURE(s): CARM1 - C ARM FLUOROSCOPY UP TO 60MIN REASON: LT ELBOW ORDER NUMBER(s): [id number], ACCESSION NUMBER(s): [id number] C-ARM FLUOROSCOPY: PROCEDURE: C-arm time for surgery on left elbow FLUOROSCOPY TIME: 12.5 seconds DAP: 0.39 mGy mgy FINDINGS: Spot intraoperative C arm radiographs demonstrating surgery on left elbow. IMPRESSION: 1. Please refer to surgical report for detailed findings. 4.Date: 10/25/24 Preop Diagnosis: Left radial head fracture, displaced, 50 % of radial head Postop Diagnosis: same Surgeon: Gabe Cunningham MD Correctional Corporal: none Anesthesiologist: Dr Jimenez Anesthesia: General Drains: none Implant: two gamaliel screws Consent: The patient was informed of the risks and benefits of the procedure. These include but are not limited to complications of anesthesia, postoperative infection, incomplete relief of symptoms, recurrence of symptoms, damage to blood vessels, nerves and tendons, deep venous thrombosis, pulmonary embolism and possible need for repeat surgery in the future. 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 Name of Procedure Performed ORIF left elbow radial head fracture Procedure Details Procedure Details: Patient brought in the operating room given general anesthesia supine position without complication nonsterile tourniquet on left proximal arm left arm placed on armboard radiolucent sterile prep and drape left upper extremity time-out performed confirmation of site correct site open reduction internal fixation left radial head fracture correct procedure after review of the operative consent history and physical my initials and left arm exsanguination with the Esmarch tourniquet elevated to 250 mm mm of mercury total tourniquet time of 30 minutes longitudinal incision made over lateral aspect of radial capitate joint sharp dissection through skin down the subcutaneous tissue blunt dissection the deep fascia the fascia divided blunt dissection down to capsule capsule and divided including annular ligament exposing radial head and neck there seemed to be a 50% articular surface depression fracture lateral aspect or anterior lateral aspect which was then pushed back into place using osteotome and then held in place using guidewires for Gamaliel screws into her screws placed 118 mm 120 mm the far end of the hardware screws could be directly visualized by rotating the radius to see the of the screws were not protruding beyond the articular cartilage surface and similarly on the fracture site of the screws were seen to not be proud and there was no clicking or rubbing pronation and supination passively irrigation was then performed excellent hemostasis noted after tourniquet let down closure of annular ligament repair of annular ligament and deep fat the deep capsule with simple interrupted 0 Vicryl suture then repair of fascia over common extensors with 0 Vicryl suture simple inverted interrupted and then subcutaneous 2-0 Vicryl and silvia for skin fluffs ABD long-arm posterior splint in neutral pronation supination follow up in orthopedic office two weeks Specimen: none Condition Stable Disposition 2 Still a Patient GABE CUNNINGHAM Oct 25, 2024 13:23 Condition at Discharge: Stable Final Diagnosis/Problems List Encounter for elective surgery Displaced fracture of the left radial head status post mechanical fall Hypothyroidism Vitamin-D deficiency Discharge Disposition: Home Discharge Instruct/Medications Diet: Regular Activity: No Restrictions, As Tolerated Follow Up/Referral: Follow-up with PCP Follow-up with orthopedic surgery Follow-up in discharge Clinic Scheduled PRN Clonidine Hydrochloride (Clonidine Hcl), 1 TAB PO BIDP PRN Hydrocodone-Acetaminophen (Hydrocodone Bitartrate/AC 5-325 mg), 1 TAB PO Q6HP PRN Hydrocodone-Acetaminophen (Hydrocodone Bitartrate/AC 10-325 mg), 1 TAB PO QIDP PRN Ibuprofen (Ibuprofen), 1 TAB PO Q6HP PRN Discharge Statement: "Patient was advised to return to the ER or call 911 if any headaches, dizziness, shortness of breath, chest pain, abdominal pain, bleeding, fevers, or worsening of medical condition. Patient was counseled about treatment plan, medications, possible side effects, patientverbalized understanding. All questions were answered to the best of my ability. This discharge took greater then 30 minutes in planning, reviewing documentation, counseling the patient, and discussing with other team members." ASSESSMENT ASSESSMENT Assessment elective surgery of left distal humeral fracture Date of Service: Oct 28, 2024 Billing Provider: TIO RICKETTS MD Common Visit Codes: [id number]/OBS DISCH DAY >30min MICHAEL HOOVER RESIDENT Oct 28, 2024 12:38 TIO RICKETTS MD Nov 01, 2024 02:00
[2024-10-28 12:50] VITALS: BP 127/82; PULSE 81; RESP 18; TEMP 97.3; O2SAT 96
[2024-10-29] MEDS ORDERED: HYDR-4798 PO (14:31)
== END 2024-10-28 12:51 | disposition home or self-care (01) | DRG 512 ==
LOC: ER 21:51 → OVERFLOW 10-25 03:36 → UNDOADMIN 10-25 03:56 → OVERFLOW 10-25 03:56 → WEST WING 10-25 14:35
PROVIDERS: ADMIT Student in an Organized Health Care Education/Training Program; ATTEND Orthopaedic Surgery
PROC: 0PSJ04Z Reposition Left Radius with Internal Fixation Device, Open Approach (ICD-10-PCS; principal; 2024-10-25 11:45)
DX: S52.122A Displaced fracture of head of left radius, initial encounter for closed fracture (principal); E03.9 Hypothyroidism, unspecified; E55.9 Vitamin D deficiency, unspecified; Z79.890 Hormone replacement therapy; W18.39XA Other fall on same level, initial encounter; Y93.89 Activity, other specified; Y92.89 Other specified places as the place of occurrence of the external cause; Y99.8 Other external cause status
CPT/HCPCS: 36415; 71046; 73070; 76000; 80048; 80053; 80320; 82306; 84439; 84443; 84480; 85025; 85610; 85730; 93005; 96365; G0378; J2250; J3490